=== PATIENT | female | born 1940 | race Caucasian/White ===

== ENCOUNTER 2017-08-30 11:09 | Emergency (ER) | payer OTHER ==
[~2017-08-30 11:09] MED LIST: ACIDOPHILUS LA1 EACH PO; ALPRAZOLAM ER1 MG PO; CALAN SR120 MG PO; CELEBREX100 MG PO; CIPRO500 MG PO; GABAPENTIN100 MG; PANADOL MAXIMU500 MG; ZOLOFT25 MG PO
== END 2017-08-30 12:42 | disposition home or self-care (01) ==
LOC: ER 11:09
DX: M54.89 Other dorsalgia (principal)

== ENCOUNTER 2017-12-20 08:30 | Outpatient (CLI) | payer OTHER | END 2017-12-20 08:38 | disposition home or self-care (01) | LOC: LAB 08:30 → RAD 08:30 | DX: D64.89 Other specified anemias (principal); D68.8 Other specified coagulation defects; E03.8 Other specified hypothyroidism; R07.1 Chest pain on breathing ==

== ENCOUNTER 2018-01-04 11:00 | Inpatient (IN) | payer OTHER ==
[2018-01-04] MEDS ORDERED: ZANAX (15:54)
[2018-01-04] MEDS ORDERED: NEURONTIN300 MG (15:54)
[2018-01-04] MEDS ORDERED: PROBIOTIC1 EAC3 (15:55)
[2018-01-04] MEDS ORDERED: NORVASC5 MG (15:55)
[2018-01-04] MEDS ORDERED: CREON DR 36,001 EACH (15:55)
[2018-01-11] MEDS ORDERED: GABAPENTIN800 MG PO (11:59)
[2018-01-11] MEDS ORDERED: DOCUSATE SODIU100 MG PO (12:00)
[2018-01-11] MEDS ORDERED: OXYC1TAB9 PO (12:01)
[2018-01-11] MEDS ORDERED: AMOX-CLAV 875-1 EACH PO (12:01)
[2018-01-11] MEDS ORDERED: CLONAZEPAM1 MG PO (12:01)
== END 2018-01-11 17:07 | disposition home or self-care (01) | DRG 455 ==
LOC: O/R 01-10 05:37 → SURH 01-10 05:37
PROVIDERS: Orthopaedic Surgery Orthopaedic Surgery of the Spine
PROC: 0SG0071 Fusion of Lumbar Vertebral Joint with Autologous Tissue Substitute, Posterior Approach, Posterior Column, Open Approach (ICD-10-PCS; 2018-01-10)
PROC: 0ST20ZZ Resection of Lumbar Vertebral Disc, Open Approach (ICD-10-PCS; 2018-01-10)
PROC: 0SG00AJ Fusion of Lumbar Vertebral Joint with Interbody Fusion Device, Posterior Approach, Anterior Column, Open Approach (ICD-10-PCS; 2018-01-10)
PROC: 07DS3ZZ Extraction of Vertebral Bone Marrow, Percutaneous Approach (ICD-10-PCS; 2018-01-10)
PROC: 4A12X4Z Monitoring of Cardiac Electrical Activity, External Approach (ICD-10-PCS; 2018-01-10)
PROC: 0SG00A0 Fusion of Lumbar Vertebral Joint with Interbody Fusion Device, Anterior Approach, Anterior Column, Open Approach (ICD-10-PCS; principal; 2018-01-10 13:30)
DX: M48.061 Spinal stenosis, lumbar region without neurogenic claudication (principal); M51.16 Intervertebral disc disorders with radiculopathy, lumbar region; M43.16 Spondylolisthesis, lumbar region; I10 Essential (primary) hypertension